=== PATIENT | female | born 1990 | race Caucasian/White ===

== ENCOUNTER 2019-01-03 10:38 | Emergency (ER) | payer OTHER ==
[2019-01-03 11:00] VITALS: BMI 20.8
--- NOTE | 2019-01-03 11:02 | PDOC ---
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 She was seen at [facility] two days prior where she was diagnosed with otitis media, otitis externa and pharyngitis. She was prescribed amoxicillin/clavulanate and ciprofloxocin otic ear drops. She reports her ear and throat pain is around just as bad as it was prior to her presenting to [facility] but she came here today because last night after she ate dinner she started vomiting and having diarrhea. Today she is not able to keep anything down and feels very dehydrated. LMP: December 15 PCP: Deanna Quezada PSH: Appendectomy Allergies: Cats, NKDA Past History - Past Medical History Allergies/Adverse Reactions: Allergies Allergy/AdvReac Type Severity Reaction Status Date / Time No Known Allergies Allergy Verified 01/03/19 10:55 Home Medications: Ambulatory Orders Albuterol Sulfate Inhaler - [Ventolin Hfa Inhaler -] 1 - 2 inh PO QID PRN Amox-Tr/K Cl [Augmentin - 875Mg Tablet] 1 tab PO BID 01/03/19 Ondansetron HCl [Zofran] 4 mg PO PRN 10 Days #10 tablet 01/03/19 Asthma: Yes Psychiatric Problems: Yes (DEPRESSION NO MEDS) - Surgical History Appendectomy: Yes - Immunization History Immunization Up to Date: Yes - Suicide/Smoking/Psychosocial Hx Smoking History: Never smoked Have you smoked in the past 12 months: No Hx Alcohol Use: No Drug/Substance Use Hx: No Substance Use Type: None Review of Systems - Review of Systems Able to Perform ROS?: Yes Constitutional: Yes: Chills, Fever, Loss of Appetite HEENTM: Yes: Ear Pain, Ear Discharge, Nose Congestion, Hearing Loss, Throat Pain Respiratory: Yes: Cough Cardiac (ROS): Yes: Lightheadedness. No: Chest Pain ABD/GI: Yes: Diarrhea, Nausea, Vomiting : No: Burning, Dysuria, Discharge Musculoskeletal: No: Back Pain, Muscle Pain Integumentary: Yes: Pallor Neurological: Yes: Headache Psychiatric: No: Anxiety, Depression Endocrine: No: Flushing, Unexplained Weight Gain Hematologic/Lymphatic: No: Blood Clots, Easy Bleeding *Physical Exam - Vital Signs Last Vital Signs Temp Pulse Resp BP Pulse Ox 98.1 F 117 H 20 115/79 100 01/03/19 10:59 01/03/19 10:59 01/03/19 10:59 01/03/19 10:59 01/03/19 10:59 - Physical Exam General Appearance: Yes: Nourished, Appropriately Dressed. No: Apparent Distress HEENT: positive: EOMI, BRY, Pharyngeal Erythema, Hearing Decreased, TM Bulging , TM Dull, TM Erythema, Other (Possible right tympanic membrane perforation). negative: Normal ENT Inspection, Normal Voice, Pharynx Normal, Tonsillar Exudate , Hearing Grossly Normal Neck: positive: Supple Respiratory/Chest: positive: Lungs Clear, Normal Breath Sounds. negative: Respiratory Distress, Accessory Muscle Use Cardiovascular: positive: Regular Rhythm, S1, S2, Tachycardia Vascular Pulses: Dorsalis-Pedis (R): 2+, Doralis-Pedis (L): 2+ Gastrointestinal/Abdominal: positive: Soft, Increased Bowel Sounds. negative: Tender, Distended, Guarding, Rebound Rectal Exam: positive: deferred Lymphatic: negative: Adenopathy Musculoskeletal: positive: Normal Inspection. 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 She was seen at [facility] two days prior where she was diagnosed with otitis media, otitis externa and pharyngitis. She was prescribed amoxicillin/clavulanate and ciprofloxocin otic ear drops. She reports her ear and throat pain is around just as bad as it was prior to her presenting to [facility] but she came here today because last night after she ate dinner she started vomiting and having diarrhea. Today she is not able to keep anything down and feels very dehydrated. VS: Tachycardic DDx IBNLT: otitis media, otitis externa, pharyngitis, perforated ear drum, gastroenteritis/food poisoning, C-diff, dehydration, electrolyte/metabolic disturbance. Plan: Labs, Urine, IV hydration, tylenol, zofran, re-assess. Labs show elevated WBC count which makes sense considering she likely has an ear infection, throat infection, and a stomach virus. - HCG negative - Will generously hydrate patient with 3 liters of NS and send zofran to her pharmacy. - She feels much better after symptomatic treatment. - Patient requests DC as she states she no longer feels unwell. - Will DC w PCP FU and zofran to her pharmacy. *DC/Admit/Observation/Transfer Diagnosis at time of Disposition: Nausea and vomiting, Ruptured ear drum, Diarrhea, Otitis externa, Otitis media - Discharge Dispostion Disposition: HOME Condition at time of disposition: Improved Decision to Admit order: No - Prescriptions Prescriptions: Ondansetron HCl [Zofran] 4 mg PO PRN 10 Days #10 tablet - Referrals Referrals: Deanna Quezada [Primary Care Provider] - Jaswinder Swift MD [Staff Physician] - - Patient Instructions Printed Discharge Instructions: Ruptured Eardrum, DI for Otitis Externa, DI for Diarrhea and Traveler's Diarrhea -- Adult, Nausea and Vomiting-Adult Additional Instructions: You came into the ER with nausea, vomiting, and diarrhea. We believe you might have experienced food poisoning. Drink plenty of fluids. Take motrin/ibuprofen/ advil or tylenol as needed for pain control. We sent an anti nausea medication to your pharmacy - please make sure to go and pick it up. Please make sure to schedule a follow up appointment with your primary care doctor in the next 3 days to make sure you are being taken care of and getting better. Come back to the ER if your pain worsens, you start vomiting, or have any other new or worsening concerns. Thank you for coming to the [facility] ER. We hope you feel better soon! Print Language: SERBIAN - Post Discharge Activity Forms/Work/School Notes: Back to Work
[2019-01-03] MEDS ORDERED: SODIUM CHLORIDE 0.9% 500 ML INFUS.BAG IV ONE ×3 (11:38→14:20)
[2019-01-03] MEDS ORDERED: IBUPROFEN 600 MG TABLET (FP) PO ONE (11:39)
[2019-01-03] MEDS ORDERED: ACETAMINOPHEN 1000 MG/100 ML VIAL (NON FORMULARY) IVPB ONE (11:43)
[2019-01-03] MEDS ORDERED: ONDANSETRON 4 MG/2 ML VIAL IVPUSH ONE (11:43)
[2019-01-03] MEDS ORDERED: ACETAMINOPHEN 325 MG TABLET (FP) PO ONE (11:44)
[2019-01-03] MEDS ORDERED: ONDANSETRON 4 MG/2 ML VIAL ONE (11:45)
[2019-01-03] MEDS ORDERED: ACETAMINOPHEN 325 MG TABLET (FP) ONE (11:45)
[2019-01-03 12:14] LABS: BASO % 0.6 % (0-2.0); EOS % 6.2 % (0-4.5); HEMATOCRIT 52.5 % (32.4-45.2); HEMOGLOBIN 16.9 GM/dL (10.7-15.3); LYMPH % 11.7 % (8-40); MCH 27.5 pg (25.7-33.7); MCHC 32.2 g/dl (32.0-36.0); MEAN CELL VOLUME 85.3 fl (80-96); MEAN PLT VOLUME 8.8 fl (7.5-11.1); MONO % 6.5 % (3.8-10.2); PLATELET COUNT 310 K/MM3 (134-434); RBC 6.15 M/mm3 (3.60-5.2); RDW 13.9 % (11.6-15.6); WHITE BLOOD COUNT 14.6 K/mm3 (4.0-10.0)
[2019-01-03 12:34] LABS: HCG,QUALITATIVE URINE Negative
[2019-01-03 12:41] LABS: ALBUMIN 4.9 g/dl (3.4-5.0); ALK PHOS 100 U/L (45-117); ANION GAP 9 MMOL/L (8-16); BILIRUBIN,TOTAL 0.6 mg/dL (0.2-1); BLOOD UREA NITROGEN 10 mg/dL (7-18); CALCIUM 9.9 mg/dL (8.5-10.1); CHLORIDE 105 mmol/L (98-107); CO2 26 mmol/L (21-32); CREATININE 0.7 mg/dL (0.55-1.3); GLUCOSE,RANDOM 87 mg/dL (74-106); POTASSIUM 3.9 mmol/L (3.5-5.1); SGOT/AST 27 U/L (15-37); SGPT/ALT 28 U/L (13-61); SODIUM 140 mmol/L (136-145)
[2019-01-03] MEDS ORDERED: FAMOTIDINE 20 MG/50 ML IVPB 20 MG/50 ML MG IVPB ONE ×2 (12:41→12:49)
--- NOTE | 2019-01-03 12:46 | PDOC ---
Documentation entered by Freda Shepard SCRIBE, acting as scribe for Esteban Rodgers MD. Esteban Rodgers MD: This documentation has been prepared by the Devyn johnson Sammi, SCRIBE, under my direction and personally reviewed by me in its entirety. I confirm that the documentation accurately reflects all work, treatment, procedures, and medical decision making performed by me. Attending Attestation - Resident Resident Name: Bran Nicole - ED Attending Attestation I have performed the following: I have examined & evaluated the patient, The case was reviewed & discussed with the resident, I agree w/resident's findings & plan - HPI HPI: 01/03/19 12:42 28-year-old female with no severe past medical history, deaf, recently diagnosed acute otitis media, complicated by perforation started on Augmentin and Cipro drops a few days ago presents now with nausea/vomiting/diarrhea and no abdominal pain since yesterday. No fevers or chills, states last meal was 2 days ago cannot recall what she ate, denies any travel or sick contacts. History of appendectomy 5 years ago but no other recurring GI complications. - Physicial Exam PE: 01/03/19 12:44 Tachycardic at triage, currently 90 at rest on my exam Dry mucosa, no jaundice or pallor Heart is regular, lungs are clear Abdomen is soft/nondistended/nontender. No guarding or rebound. - Medical Decision Making 01/03/19 12:44 28-year-old female with history of appendectomy presents with nausea/vomiting/ diarrhea since last night, in the setting of taking antibiotics for acute otitis media and externa. No peritoneal findings on exam, no other red flags on history. Presentation could be most consistent with gastroenteritis, question reactive to antibiotics versus infectious, less likely focal peritoneal process. Check labs, urinalysis IV fluids, antiemetics, antacids Reassess
[2019-01-03 13:52] LABS: EPI CELLS 27.4 /HPF (0-5/HPF); PH,URINE 5.5 (5.0-8.0); URINE APPEARANCE CLOUDY; URINE BILIRUBIN 1+ (NEGATIVE); URINE CASTS 38 /lpf (0-8); URINE COLOR DK YELLOW; URINE GLUCOSE (UA) NEGATIVE (NEGATIVE); URINE KETONE 2+ (NEGATIVE); URINE LEUK ESTERASE NEGATIVE (NEGATIVE); URINE NITRITE NEGATIVE (NEGATIVE); URINE PROTEIN TRACE (NEGATIVE); URINE RBC 7 /hpf (0-4); URINE WBC 5 /hpf (0-5)
[2019-01-03 16:08] VITALS: BP 114/71; PULSE 105; TEMP 98.3
== END 2019-01-03 16:23 | disposition home or self-care (01) ==
LOC: JER 10:38
PROC: 3E033GC Introduction of Other Therapeutic Substance into Peripheral Vein, Percutaneous Approach (ICD-10-PCS; principal; 2019-01-03)
PROC: 3E033GC Introduction of Other Therapeutic Substance into Peripheral Vein, Percutaneous Approach (ICD-10-PCS; 2019-01-03)
DX: H66.91 Otitis media, unspecified, right ear (principal); H60.502 Unspecified acute noninfective otitis externa, left ear; H72.91 Unspecified perforation of tympanic membrane, right ear; A08.4 Viral intestinal infection, unspecified; B97.89 Other viral agents as the cause of diseases classified elsewhere
CPT/HCPCS: 36415; 80053; 81003; 83690; 84703; 85025; 96365; 96375; 99284-25

== ENCOUNTER 2022-01-16 02:07 | Emergency (ER) | payer OTHER ==
[2022-01-16 02:40] VITALS: BP 120/74; PULSE 94; TEMP 98.4; BMI 20.4
== END 2022-01-16 06:07 | disposition home or self-care (01) ==
LOC: JER 02:07
DX: J06.9 Acute upper respiratory infection, unspecified (principal)
CPT/HCPCS: 0241U-QW; 99283-25

== ENCOUNTER 2023-04-09 03:58 | Emergency (ER) | payer OTHER ==
[2023-04-09 04:08] VITALS: BMI 20.1
[2023-04-09] MEDS ORDERED: ONDANSETRON *ODT* 4 MG TABLET SL ONE (05:22)
[2023-04-09] MEDS ORDERED: ACETAMINOPHEN 500 MG TABLET (FP) PO ONE (05:22)
[2023-04-09] MEDS ORDERED: ALBUTEROL SO4 2.5/IPRATROPIUM 0.5 INH SOL 3 ML VIAL.NEB. NEB ONE ×2 (05:22→05:48)
[2023-04-09] MEDS ORDERED: DEXAMETHASONE 4 MG TABLET (FP) PO ONE (05:26)
[2023-04-09 05:39] VITALS: TEMP 98.7
[2023-04-09] MEDS ORDERED: ACETAMINOPHEN 325 MG TABLET (FP) ONE (05:48)
[2023-04-09] MEDS ORDERED: ONDANSETRON *ODT* 4 MG TABLET ONE (05:48)
[2023-04-09] MEDS ORDERED: DEXAMETHASONE 4 MG TABLET (FP) ONE (05:49)
[2023-04-09 08:02] LABS: EPI CELLS >36 /uL (0-25.1); HYALINE CASTS 1 /uL (0-3.1); PH,URINE 5.5 (5.0-8.0); URINE APPEARANCE CLOUDY; URINE BACTERIA 1304 /uL (0-1359); URINE BILIRUBIN NEGATIVE (NEGATIVE); URINE COLOR YELLOW; URINE GLUCOSE (UA) NEGATIVE (NEGATIVE); URINE KETONE 1+ (NEGATIVE); URINE LEUK ESTERASE TRACE (NEGATIVE); URINE NITRITE NEGATIVE (NEGATIVE); URINE PROTEIN NEGATIVE (NEGATIVE); URINE RBC 18 /uL (0-23.9); URINE UROBILINOGEN 0.2 mg/dL (0.2-1.0); URINE WBC 51 /uL (0-25.8)
[2023-04-09 08:37] VITALS: BP 110/67; RESP 20
[2023-04-10 13:09] VITALS: PULSE 76
== END 2023-04-09 08:41 | disposition home or self-care (01) ==
LOC: JER 03:58
PROC: 3E0F7GC Introduction of Other Therapeutic Substance into Respiratory Tract, Via Natural or Artificial Opening (ICD-10-PCS; principal; 2023-04-09)
DX: R06.02 Shortness of breath (principal); H93.8X3 Other specified disorders of ear, bilateral; J02.9 Acute pharyngitis, unspecified; B34.9 Viral infection, unspecified; J40 Bronchitis, not specified as acute or chronic; R10.9 Unspecified abdominal pain; R11.2 Nausea with vomiting, unspecified; R05.9 Cough, unspecified; H92.03 Otalgia, bilateral; Z20.822 Contact with and (suspected) exposure to COVID-19
CPT/HCPCS: 0241U-QW; 71045-TC-FY; 81003; 84703; 87086; 87651; 94640; 99284-25; Q0162